=== PATIENT | male | born 1960 | race Caucasian/White ===

== ENCOUNTER → 2020-03-13 | Outpatient (CLI) | payer SELFPAY ==
[~2020-03-13] MED LIST: CONTRAST GIVEN. MC PRN; IOHEXOL 240 MG/ML 50ML VIAL. PO ONE; IOHEXOL 300 MG/ML 100ML VIAL. IV ONE
--- NOTE | 2020-03-13 11:33 | RAD ---
Contrast-enhanced CT scan of the pelvis without comparison for left inguinal hernia. TECHNIQUE: Contiguous axial images are obtained through the pelvis following administration of IV contrast. Oral contrast was also administered. Sagittal and coronal reformations are evaluated. FINDINGS: No gross abnormalities of the visualized large or small bowel. Urinary bladder is fluid distended and grossly unremarkable. Prostate is mildly enlarged with central coarse calcifications. No vascular anomalies are seen. No suspicious adenopathy. There are degenerative changes of the hips, right greater than left. No suspicious osteolytic blastic or osteolytic bone lesions. There is a large left homogeneous fluid collection in the left scrotum which displaces the left testicle and simultaneously exerts mass effect on the testicle and base of the penis. Given this effect, etiologies such as epididymal cyst, or scrotal tunica cyst should be considered. Hydrocele or spermatocele are additional considerations. Scrotal ultrasound may be of benefit to distinguish these etiologies. IMPRESSION: 1. Large left scrotal fluid collection which is homogeneous but exerts significant mass affect. Most likely considerations are large epididymal cyst or scrotal tunica cysts arising from the tunica vaginalis or tunica albuginea. Scrotal ultrasound may help distinguish these etiologies. PQRS Compliance Statement: One or more of the following individualized dose reduction techniques were utilized for this examination: 1. Automated exposure control 2. Adjustment of the mA and/or kV according to patient size 3. Use of iterative reconstruction technique Electronically signed by: Loco Eddy MD (03/13/2020 11:29 AM) [id number]
== END ==
LOC: CT 08:28
PROVIDERS: ATTEND Specialist
DX: K40.90 Unilateral inguinal hernia, without obstruction or gangrene, not specified as recurrent (principal); N43.2 Other hydrocele
CPT/HCPCS: 72193; Q9966; Q9967